=== PATIENT | female | born 1970 ===

== ENCOUNTER 2021-07-14 11:54 | Emergency (ER) | payer OTHER ==
[2021-07-14] MEDS ORDERED: MECLIZINE 25 MG TAB PO ONE (13:51)
--- NOTE | 2021-07-14 13:53 | Event Note ---
ED Screening Note ED Screening Note: 51 yo comes in with dizziness started Tues with nausea no cp no sob no vomiting no back pain no abd pain no dysuria no hx of same pmh none rx none This initial assessment/diagnostic orders/clinical plan/treatment(s) is/are subject to change based on patients health status, clinical progression and re-assessment by fellow clinical providers in the ED. Further treatment and workup at subsequent clinical providers discretion. Patient/guardian urged not to elope from the ED as their condition may be serious if not clinically assessed and managed. Initial orders include: ekg antivert and reeval
[2021-07-14] MEDS ORDERED: ONDANSETRON 4 MG ODT TAB PO ONE (14:39)
--- NOTE | 2021-07-14 14:58 | Emergency Department Report ---
ED Dizziness HPI - General Chief Complaint: Dizziness Stated Complaint: DIZZY/NAUSEA Time Seen by Provider: 07/14/21 13:53 Source: patient Mode of arrival: Ambulatory Limitations: No Limitations - History of Present Illness Initial Comments: 51-year-old female with no sniffing past medical history presents ER complaining of dizzy feeling intermittent since yesterday. Symptoms described as a moving/spinning sensation. No aggravating or alleviating factors reported. Patient had nausea with 3 episodes of vomiting today. She complains of a mild headache. She denies ringing in her ear, unsteady gait, chest pain, shortness of breath, abdominal pain. She denies lightheaded/near syncopal feeling. - Related Data Previous Rx's Medication Instructions Recorded Last Taken Type Meclizine HCl 25 mg PO QID PRN #30 tab 07/14/21 Unknown Rx Ondansetron [Zofran Odt] 4 mg PO Q8HR PRN #20 tab.rapdis 07/14/21 Unknown Rx Allergies Allergy/AdvReac Type Severity Reaction Status Date / Time No Known Allergies Allergy Unverified 07/14/21 13:38 ED Review of Systems ROS: Stated complaint: DIZZY/NAUSEA Other details as noted in HPI Comment: All other systems reviewed and negative Other: General: No acute distress Head: Atraumatic Eyes: normal appearance Neck: Normal appearance, no midline tenderness Chest: Clear to auscultation bilaterally CV: Regular rate and rhythm Abdomen: Soft, normal bowel sounds, nontender, nondistended, no rebound or guarding Back: Normal inspection Extremity: Normal inspection, full range of motion Neuro: Alert O x 3, no facial asymmetry, speech clear, no gross motor sensory deficit, [id number] function intact, gait steady Psych: Appropriate behavior Skin: No rash ED Past Medical Hx - Medications Home Medications: Home Medications Medication Instructions Recorded Confirmed Last Taken Type Meclizine HCl 25 mg PO QID PRN #30 tab 07/14/21 Unknown Rx Ondansetron [Zofran Odt] 4 mg PO Q8HR PRN #20 tab.rapdis 07/14/21 Unknown Rx ED Physical Exam - General Limitations: No Limitations - Other Other exam information: General: No acute distress Head: Atraumatic Eyes: normal appearance ENT: no significant nystagmus, extraocular movements intact Neck: Normal appearance, no midline tenderness Chest: Clear to auscultation bilaterally CV: Regular rate and rhythm Abdomen: Soft, normal bowel sounds, nontender, nondistended, no rebound or guarding Back: Normal inspection Extremity: Normal inspection, full range of motion Neuro: Alert O x 3, no facial asymmetry, speech clear, no gross motor sensory deficit, [id number]-abpq-[id number] function intact, gait steady Psych: Appropriate behavior Skin: No rash ED Course Vital Signs 07/14/21 07/14/21 13:39 14:10 Temperature 97.7 F Pulse Rate 60 70 Respiratory 18 Rate Blood Pressure 113/51 [Right] O2 Sat by Pulse 100 Oximetry ED Medical Decision Making - EKG Data -: EKG Interpreted by Me EKG shows normal: sinus rhythm, ST-T waves (no stemi) Rate: normal (61) - Medical Decision Making 51-year-old female presents to the hospital with symptoms of vertigo. Neurologic exam unremarkable. Patient feels better after meclizine and Zofran. Will be discharged with ENT follow-up Critical Care Time: No Critical care attestation.: If time is entered above; I have spent that time in minutes in the direct care of this critically ill patient, excluding procedure time. ED Disposition Clinical Impression: Vertigo Disposition: 01 HOME / SELF CARE / HOMELESS Is pt being admited?: No Does the pt Need Aspirin: No Condition: Stable Instructions: Vertigo Additional Instructions: Take the medication as prescribed. Follow-up with your doctor or doctor/clinic provided. Return if symptoms worsen as indicated by your discharge instructions. Prescriptions: Meclizine HCl 25 mg PO QID PRN #30 tab PRN Reason: Vertigo Ondansetron [Zofran Odt] 4 mg PO Q8HR PRN #20 tab.rapdis PRN Reason: Nausea And Vomiting Referrals: PRIMARY CARE, [Primary Care Provider] - 3-5 Days ELIE KHAN MD [Referring] - 3-5 Days (ENT doctor) DOM MENDOZA MD [Staff Physician] - 3-5 Days (primary care doctor) Time of Disposition: 17:06
[2021-07-14 17:16] VITALS: BP 110/60
--- NOTE | 2021-07-15 10:25 | Electrocardiograph Report ---
[facility] Test Date: 2021-07-14 Test Time: 13:58:16 Pat Name: SONJA BRITO Department: Room: Gender: F [employer]: ROBERT : 1970 Requested By: ED DOC Order Number: [id number] Reading MD: Rigoberto Pfeiffer Measurements Intervals [place] Rate: 61 P: -86 ME: 90 QRS: 63 QRSD: 94 T: 57 QT: 434 QTc: 436 Interpretive Statements Ectopic atrial rhythm No previous ECG available for comparison Electronically Signed On 07-15-2021 10:25:06 EST by Rigoberto Pfeiffer
== END 2021-07-14 17:17 | disposition home or self-care (01) ==
LOC: ED 11:54
DX: R42 Dizziness and giddiness (principal)
CPT/HCPCS: 93005; 93010; 99282; J3490; Q0162